=== PATIENT | female | born 1940 | race Caucasian/White ===

== ENCOUNTER 2020-09-26 04:43 | Emergency (ER) | payer OTHER, MEDICARE ==
[~2020-09-26] VITALS: Ht 165.1 cm; Wt 99.8 kg
[2020-09-26 04:47] VITALS: BP_SYST 165
--- NOTE | 2020-09-26 04:54 | NUR ---
Patient to ER bed 6 to gown for evaluation. Side rails up. Report given to DAVID Chavez.
--- NOTE | 2020-09-26 05:08 | NUR ---
Pt BIB family to ED C/O Bilateral knee, left wrist, right arm pain, lower back pain caused by tripping over dog while trying to answer the door. VSS no s/s of acute distress No other complaints noted Resting on gurney rails up
--- NOTE | 2020-09-26 05:18 | NUR ---
Dr. Erickson bedside for pt eval
[2020-09-26] MEDS ORDERED: KETOROLAC TROMETHAMINE 30 MG VIAL IM ONE (05:30)
--- NOTE | 2020-09-26 05:45 | NUR ---
[facility] bedside pt in stable condition
--- NOTE | 2020-09-26 06:14 | NUR ---
Dr. Erickson bedside for pt follow up and update
[2020-09-26 06:35] VITALS: BP_SYST 165
--- NOTE | 2020-09-26 06:35 | NUR ---
Patient given written and verbal discharge instructions and verbalizes understanding. ER MD discussed with patient the results and treatment provided. Patient in stable condition. ID arm band removed. Patient educated on pain management and to follow up with PMD. Pain Scale 0/10 Opportunity for questions provided and answered.
== END 2020-09-26 06:35 | disposition home or self-care (01) ==
LOC: SED 04:43
DX: S63.502A Unspecified sprain of left wrist, initial encounter (principal); S80.02XA Contusion of left knee, initial encounter; S80.01XA Contusion of right knee, initial encounter; M19.042 Primary osteoarthritis, left hand; M19.032 Primary osteoarthritis, left wrist; W01.10XA Fall on same level from slipping, tripping and stumbling with subsequent striking against unspecified object, initial encounter; Y93.89 Activity, other specified; Y92.89 Other specified places as the place of occurrence of the external cause; Y99.8 Other external cause status
CPT/HCPCS: 73564; 96372; 99284